=== PATIENT | male | born 1955 | race Caucasian/White ===

== ENCOUNTER 2017-02-03 21:00 | Emergency (ER) | payer OTHER ==
[~2017-02-03] VITALS: Ht 167.6 cm; Wt 77.1 kg
[~2017-02-03 21:00] MED LIST: ASPI-807 PO; BACL20TA PO; CHOL400T11 PO; GABA300C PO; GEMF600T PO; ISOS30TA28 PO; LISI2.5T2 PO; LOVA20TA2 PO; METF500T4 PO
[2017-02-03 21:10] VITALS: BP 119/61
== END 2017-02-03 21:49 | disposition home or self-care (01) ==
LOC: ER 21:03
DX: B95.61 Methicillin susceptible Staphylococcus aureus infection as the cause of diseases classified elsewhere (principal); I10 Essential (primary) hypertension; E11.9 Type 2 diabetes mellitus without complications; Z90.89 Acquired absence of other organs; Z95.818 Presence of other cardiac implants and grafts; F17.200 Nicotine dependence, unspecified, uncomplicated
CPT/HCPCS: 99283; 99406; A4606; Z7610

== ENCOUNTER 2017-09-28 22:55 | Inpatient (IN) | payer OTHER ==
[~2017-09-28] VITALS: Ht 165.1 cm; Wt 79.0 kg
--- NOTE | 2017-09-28 23:21 | NUR ---
PT BIB , AMBULATORY TO ER BED 8 C/O FLU LIKE SYMPTOMS X 2 DAYS. TOOK JOANIE OTC MEDS IN THE AM. PT AOX3 RR EVEN AND UNLABORED. NO SOB NOTED. NAD NOTED. NO NVD AT THIS TIME. PT GOWNED AND PLACED ON MONITOR WAITING FOR MD CANDELARIO.
[2017-09-28] MEDS ORDERED: IBUPROFEN 400 MG TABLET ONE (23:44)
--- NOTE | 2017-09-28 23:46 | NUR ---
RAADIOLOGY AT BEDSIDE FOR CXR
[2017-09-29] MEDS ORDERED: IBUPROFEN 400 MG TABLET PO ONE
--- NOTE | 2017-09-29 00:25 | NUR ---
LAB AT BEDSIDE FOR BLOOD DRAW
[2017-09-29 00:41] LABS: BASOPHILS % (AUTO) 0.6 % (0.0-2.0); EOSINOPHILS % (AUTO) 0.2 % (0.0-6.0); HEMATOCRIT 48 % (39-51); HEMOGLOBIN 16.5 g/dL (13.5-17.5); LYMPHOCYTES # (AUTO) 1.3 /CMM (0.8-4.8); LYMPHOCYTES % (AUTO) 21.8 % (20.0-44.0); MEAN CORPUSCULAR HEMOGLOBIN 29 PG (26.0-33.0); MEAN CORPUSCULAR HGB CONC 35 g/dl (31.0-36.0); MEAN CORPUSCULAR VOLUME 83 fL (80-96); MONOCYTES # (AUTO) 0.9 /CMM (0.1-1.30); MONOCYTES % (AUTO) 14.7 % (2.0-12.0); NEUTROPHILS # (AUTO) 3.7 /CMM (1.8-8.9); NEUTROPHILS % (AUTO) 62.7 % (43.0-81.0); PLATELET COUNT (AUTO) 137 /CMM (150-450); RDW COEFFICIENT OF VARIATION 15.6 (11.5-15.0); RED BLOOD CELL COUNT(AUTO) 5.76 MIL/uL (4.5-6.0); WHITE BLOOD COUNT (AUTO) 5.9 K/uL (4.3-11.0)
[2017-09-29 00:57] LABS: CALCIUM, SERUM 8.5 mg/dL (8.5-10.1); CARBON DIOXIDE 22 mmol/L (21-32); CHLORIDE 102 mmol/L (98-107); GLUCOSE 123 mg/dL (74-106); POTASSIUM 3.7 mmol/L (3.5-5.1); SODIUM SERUM 137 mmol/L (136-145); UREA NITROGEN, BLOOD 20 mg/dL (7-18)
[2017-09-29] MEDS ORDERED: LEVOFLOXACIN 750 MG /D5W 150ML 150 ML IV ONE ×2 (01:00→01:05)
[2017-09-29 01:01] LABS: TROPONIN I < 0.017 ng/mL (0.00-0.056)
--- NOTE | 2017-09-29 01:04 | NUR ---
PT NOTED DIAPHORETIC. ACCUCHECK [address] VAZQUEZ AWARE
[2017-09-29 01:06] LABS: B-TYPE NATRIURETIC PEPTIDE 60 PG/ML (0-125)
--- NOTE | 2017-09-29 01:16 | NUR ---
DR PONCE HAS BEEN PAGED
--- NOTE | 2017-09-29 01:20 | NUR ---
FLU SWAB COLLECTED. CALLED FOR [facility] [employer]
[2017-09-29] MEDS ORDERED: methylPREDNISolone SOD SUCC 125 MG/2ML VIAL IV ONE (01:30)
[2017-09-29] MEDS ORDERED: methylPREDNISolone SOD SUCC 125 MG/2ML VIAL ONE (01:45)
--- NOTE | 2017-09-29 02:01 | NUR ---
PT ASSIGNED TO 313-1
--- NOTE | 2017-09-29 02:17 | NUR ---
REPORT GIVEN TO CARLOS MERCEDES FOR THO.
[2017-09-29] MEDS ORDERED: MAG HYDROX/AL HYDROX/SIMETH 30 ML UDC PO PRN (02:30)
[2017-09-29] MEDS ORDERED: DEXTROSE 50%-WATER 50 ML DISP.SYRIN IV PRN (02:30)
[2017-09-29] MEDS ORDERED: ZOLPIDEM TARTRATE 5 MG TABLET PO PRN (02:30)
[2017-09-29] MEDS ORDERED: ENOXAPARIN SODIUM 40 MG/0.4 ML DISP.SYRIN SQ SCH (02:30)
[2017-09-29] MEDS ORDERED: ONDANSETRON HCL/PF 4 MG/2 ML VIAL IVP PRN (02:30)
[2017-09-29] MEDS ORDERED: *INSULIN REGULAR(HUMULIN R)HUM 100 UNIT/ML VIAL SQ PRN (02:30)
[2017-09-29] MEDS ORDERED: Z GUARD REMEDY 2 OZ OINT TP PRN (02:30)
[2017-09-29] MEDS ORDERED: ALBUTEROL FS 2.5 MG/0.5 ML VIAL.NEB NEB PRN (02:30)
[2017-09-29] MEDS ORDERED: ACETAMINOPHEN 325 MG TABLET PO PRN (02:30)
[2017-09-29] MEDS ORDERED: MAGNESIUM HYDROXIDE 30 ML UDC PO PRN (02:30)
[2017-09-29] MEDS ORDERED: INSULIN REGULAR, HUMAN 100 UNIT/ML 3 ML VIAL SQ PRN (02:30)
[2017-09-29] MEDS ORDERED: HYDROCODONE/APAP 5/325MG 1 EACH TABLET PO PRN (02:30)
--- NOTE | 2017-09-29 02:45 | NUR ---
[employer] MAIL CARRIER NOTES ADMITTED PT ALERT,AWAKE,VERBALLY RESPONSIVE,ON O2 VIA N/C 3L/MIN.,RESPIRATIONS EVEN, UNLABORED,NO SOB NOTED. DENIES ANY PAIN OR DISCOMFORT AT THIS TIME IV SITE RT FA INTACT, PATENT. SINUS RHYTHM 80.CALL LIGHT WITHIN REACH.ATTENDED ALL NEEDS. WILL CONTINUE TO MONITOR ACCORDINGLY
--- NOTE | 2017-09-29 02:49 | NUR ---
PT TRANSFERRED PER [facility] [employer].
[2017-09-29 02:55] VITALS: BP 110/76
[2017-09-29 03:00] VITALS: BP 110/76
[2017-09-29] MEDS ORDERED: ENOXAPARIN SODIUM 40 MG/0.4 ML DISP.SYRIN SQ ONE (03:53)
--- NOTE | 2017-09-29 06:59 | NUR ---
MS RN CLOSING NOTES NOTES BLOOD GLUCOSE 249,PT REFUSED INSULIN, OFFERED X 3,EXPLAINEDSTILL REFUSING. WILL CONTINUE TO MONITOR.IN BED AWAKE ON O2 VIA N/C AT3L/MIN,NO SOB NOTED,AFEBRILE.ATTENDED ALL NEEDS
[2017-09-29 07:02] VITALS: BP 118/81
[2017-09-29] MEDS ORDERED: BLOOD SUGAR DIAGNOSTIC 1 EACH STRIP VI SCH (07:30)
[2017-09-29 08:00] VITALS: BP 118/81
[2017-09-29] MEDS ORDERED: METFORMIN 500 MG TABLET PO SCH (09:00)
[2017-09-29] MEDS ORDERED: methylPREDNISolone SOD SUCC 125 MG/2ML VIAL IV SCH (09:00)
--- NOTE | 2017-09-29 10:12 | NUR ---
PATIENT LEFT AGAINST MEDICAL ADVICE AT THIS TIME. IDENTIFICATION BAND REMOVED. INTRAVENOUS CATHETER REMOVED. PATIENT GIVEN OPPORTUNITY FOR EXIT CARE OR INVENTORY OF PERSONAL BELONGINGS. PATIENT REFUSED.
[2017-09-29] MEDS ORDERED: LEVOFLOXACIN 500 MG /D5W 100ML 500 MG in PREMIX 1 EA IV SCH (23:00)
[2017-09-30] MEDS ORDERED: ENOXAPARIN SODIUM 40 MG/0.4 ML DISP.SYRIN SQ SCH (09:00)
== END 2017-09-29 09:52 | disposition left against medical advice (07) | DRG 139 ==
LOC: ER 22:55 → TELE 09-29 02:26 → MED 09-29 09:17
PROVIDERS: ADMIT Internal Medicine; ATTEND Internal Medicine
DX: J18.9 Pneumonia, unspecified organism (principal); I10 Essential (primary) hypertension; E11.9 Type 2 diabetes mellitus without complications; E78.5 Hyperlipidemia, unspecified; I25.10 Atherosclerotic heart disease of native coronary artery without angina pectoris; Z95.5 Presence of coronary angioplasty implant and graft; Z79.82 Long term (current) use of aspirin; Z79.84 Long term (current) use of oral hypoglycemic drugs; Z79.899 Other long term (current) drug therapy
CPT/HCPCS: 36415; 71045-TC; 80048-TC; 82962-TC; 83605-TC; 83880; 84484-TC; 85025-TC; 87040-TC; 87081-TC; 87400; A4216; A4606; J1650; J1815; J1956; J2930; Z7610

== ENCOUNTER 2019-01-25 20:15 | Emergency (ER) | payer OTHER ==
[~2019-01-25] VITALS: Ht 170.2 cm; Wt 79.8 kg
[~2019-01-25 20:15] MED LIST changes: -ASPI-807 PO; -BACL20TA PO; -CHOL400T11 PO; -GABA300C PO; -GEMF600T PO; -ISOS30TA28 PO; -LISI2.5T2 PO; -LOVA20TA2 PO; +METF-440 PO; -METF500T4 PO
--- NOTE | 2019-01-25 20:57 | NUR ---
CALLED PT IN WAITING ROOM NO ANSWER.
[2019-01-25 21:32] VITALS: BP 130/80
== END 2019-01-25 22:08 | disposition home or self-care (01) ==
LOC: ER 20:17
DX: J32.9 Chronic sinusitis, unspecified (principal); J40 Bronchitis, not specified as acute or chronic; E11.9 Type 2 diabetes mellitus without complications; F17.200 Nicotine dependence, unspecified, uncomplicated; Z95.5 Presence of coronary angioplasty implant and graft
CPT/HCPCS: Z7502

== ENCOUNTER 2022-12-18 17:31 | Emergency (ER) | payer MEDICARE, OTHER ==
[~2022-12-18] VITALS: Ht 167.6 cm; Wt 78.5 kg
[2022-12-18 17:43] VITALS: BP 146/68
[2022-12-18] MEDS ORDERED: IBUPROFEN 600 MG TABLET PO ONE (18:30)
[2022-12-18] MEDS ORDERED: IBUPROFEN 600 MG TABLET ONE (18:38)
== END 2022-12-18 19:17 | disposition home or self-care (01) ==
LOC: ER 17:41
DX: M79.644 Pain in right finger(s) (principal); E11.9 Type 2 diabetes mellitus without complications; Z79.84 Long term (current) use of oral hypoglycemic drugs
CPT/HCPCS: 73130-TC